=== PATIENT | female | born 1945 | race Caucasian/White ===

== ENCOUNTER 2019-08-20 22:36 | Inpatient (IN) | payer MEDICARE ==
[2019-08-20 23:07] LABS: BASOPHILS ABSOLUTE AUTO 0.06 K/mm3 (0.00-0.23); BASOPHILS PERCENT AUTO 1 % (0-2); EOSINOPHILS ABSOLUTE AUTO 0.35 K/mm3 (0.00-0.68); EOSINOPHILS PERCENT AUTO 4 % (0-6); Hematocrit 29.8 % (33.0-51.0); Hemoglobin 8.8 g/dL (11.5-16.0); IMMATURE GRAN ABSOLUTE AUTO 0.02 K/mm3 (0.00-0.10); IMMATURE GRAN PERCENT AUTO 0 % (0-1); LYMPHOCYTES ABSOLUTE AUTO 1.64 K/mm3 (0.84-5.20); LYMPHOCYTES PERCENT AUTO 18 % (21-46); MONOCYTES ABSOLUTE AUTO 0.81 K/mm3 (0.16-1.47); MONOCYTES PERCENT AUTO 9 % (4-13); Mean Corpuscular HGB 24.1 pg (26.0-34.0); Mean Corpuscular HGB Conc 29.5 g/dL (31.5-36.5); Mean Corpuscular Volume 82 fL (80-100); Mean Platelet Volume 9.7 fL (9.1-12.4); NEUTROPHILS PERCENT AUTO 69 % (41-73); Platelet Count 316 K/mm3 (150-400); RDW Coefficient Variation 16.6 % (11.7-14.2); RDW Standard Deviation 49.3 fL (35.1-46.3); Red Blood Cell Count 3.65 M/mm3 (3.80-5.20); White Blood Cell Count 9.38 K/mm3 (4.00-11.30)
[2019-08-20 23:30] LABS: Albumin, Blood 3.7 g/dL (3.4-5.0); Albumin/Globulin Ratio 1.1 (0.8-1.8); Bilirubin, Total 0.2 mg/dL (0.1-1.0); Bun/Creatinine Ratio 12.4 (12.0-20.0); Calcium, Blood 8.8 mg/dL (8.5-10.1); Creatinine, Blood 1.05 mg/dL (0.40-1.00); Globulin, Blood 3.3 g/dL (2.2-4.0); Troponin I 0.046 ng/mL (0.000-0.040)
[2019-08-20] MEDS ORDERED: ATOR40TA PO (23:40)
--- NOTE | 2019-08-21 05:30 | NUR ---
SUMMARY PT ARIVED TO FLOOR WITH CX PAIN. PT TX WITH NTG X 2 WITH DECREASED PAIN. PT BP IS CURRENTLY <150 SYSTOLIC. PT HAD NO OTHER ISSUES NOTED PT CURRENTLY SLEEPING AND BREATHING EASY. CALL LIGHT IN REACH. TM
[2019-08-21 07:44] LABS: Hematocrit 28.3 % (33.0-51.0); Hemoglobin 8.3 g/dL (11.5-16.0); Mean Corpuscular HGB 23.6 pg (26.0-34.0); Mean Corpuscular HGB Conc 29.3 g/dL (31.5-36.5); Mean Corpuscular Volume 80 fL (80-100); Mean Platelet Volume 9.9 fL (9.1-12.4); Platelet Count 291 K/mm3 (150-400); RDW Coefficient Variation 16.8 % (11.7-14.2); Red Blood Cell Count 3.52 M/mm3 (3.80-5.20); White Blood Cell Count 8.23 K/mm3 (4.00-11.30)
[2019-08-21 08:33] LABS: Alanine Aminotransfer (ALT/SGP 18 U/L (12-78); Albumin, Blood 3.4 g/dL (3.4-5.0); Albumin/Globulin Ratio 1.1 (0.8-1.8); Alk Phos 83 U/L (50-136); Anion Gap 6 mmol/L (6-16); Aspartate Aminotrans (AST/SGOT 25 U/L (12-37); Bilirubin, Total 0.3 mg/dL (0.1-1.0); Blood Urea Nitrogen 11 mg/dL (8-24); Bun/Creatinine Ratio 12.1 (12.0-20.0); CO2, Blood 25 mmol/L (21-32); Calcium, Blood 8.6 mg/dL (8.5-10.1); Chloride, Blood 110 mmol/L (98-108); Creatinine, Blood 0.91 mg/dL (0.40-1.00); Globulin, Blood 3.1 g/dL (2.2-4.0); Glomerular Filtration Rate >60 (60-); Glucose, Blood 96 mg/dL (70-99); Potassium, Blood 4.1 mmol/L (3.5-5.5); Sodium, Blood 141 mmol/L (136-145); Total Protein, Blood 6.5 g/dL (6.4-8.2)
[2019-08-21 08:35] LABS: Troponin I 0.294 ng/mL (0.000-0.040)
--- NOTE | 2019-08-21 08:47 | NUR ---
Echocardiogram completed.
[2019-08-21] MEDS ORDERED: Zantac150 MG PO (12:53)
[2019-08-21] MEDS ORDERED: MONT10T PO (13:05)
[2019-08-21] MEDS ORDERED: OMEP20ER PO (13:23)
[2019-08-21] MEDS ORDERED: Imitrex100 MG PO (13:27)
[2019-08-21] MEDS ORDERED: EUTHYROX88 MCG PO (13:27)
[2019-08-21] MEDS ORDERED: ATOR80 PO (13:28)
[2019-08-21] MEDS ORDERED: LISI20 PO (13:28)
[2019-08-21] MEDS ORDERED: CYAN500 PO (13:29)
[2019-08-21] MEDS ORDERED: B COMPLEX PO (13:33)
[2019-08-21] MEDS ORDERED: CALCIUM CIT 311 EACH PO (13:34)
[2019-08-21] MEDS ORDERED: COLCHICINE0.6 M1 PO (13:34)
--- NOTE | 2019-08-21 13:58 | NUR ---
SHE HAS BEEN NPO RIGHT AFTER BREAKFAST WHEN WAS HERE. MED REC DONE FROM HER [facility] FAX WE RECEIVED AND HER VERIFICATION. NO CP. NO SOB. NO DIZZINESS. HER FRIENDS ARE HERE NOW VISITING WITH HER.
--- NOTE | 2019-08-21 15:29 | NUR ---
SHE WENT TO [facility] BY W/C AT 1518. HER 2 FRIENDS WERE WITH HER. SHE CONTINUED TO HAVE NO CP OR SOB. HER FEW BELONGINGS WENT WITH HER AND HER FRIENDS. WILL CALL REPORT WHEN I GET A NEW ROOM ASSIGNMENT FOR HER.
[2019-08-21 16:05] LABS: Troponin I 0.5 ng/mL (0.000-0.040)
--- NOTE | 2019-08-21 18:42 | NUR ---
PT ARIRIVED FROM FLOOR STEWARD/STEWARDESS VIA RCA STENT PLACEMENT. PT ALERT, DENIES CP OR SOB. TR BAND INPLACE WITH 12ML AIR IN BAND, NO ACTIVE BLEEDING TO PUNCTURE SITE. SKIN PWD ANDINTACT. GOOD ROM. PULSES INTACT
[2019-08-22 04:33] LABS: BASOPHILS ABSOLUTE AUTO 0.07 K/mm3 (0.00-0.23); BASOPHILS PERCENT AUTO 1 % (0-2); EOSINOPHILS ABSOLUTE AUTO 0.27 K/mm3 (0.00-0.68); EOSINOPHILS PERCENT AUTO 4 % (0-6); Hematocrit 29.3 % (33.0-51.0); Hemoglobin 8.7 g/dL (11.5-16.0); IMMATURE GRAN ABSOLUTE AUTO 0.02 K/mm3 (0.00-0.10); IMMATURE GRAN PERCENT AUTO 0 % (0-1); LYMPHOCYTES ABSOLUTE AUTO 1.85 K/mm3 (0.84-5.20); LYMPHOCYTES PERCENT AUTO 25 % (21-46); MONOCYTES ABSOLUTE AUTO 0.82 K/mm3 (0.16-1.47); MONOCYTES PERCENT AUTO 11 % (4-13); Mean Corpuscular HGB 23.7 pg (26.0-34.0); Mean Corpuscular HGB Conc 29.7 g/dL (31.5-36.5); Mean Corpuscular Volume 80 fL (80-100); Mean Platelet Volume 10.2 fL (9.1-12.4); NEUTROPHILS ABSOLUTE AUTO 4.47 K/mm3 (1.96-9.15); NEUTROPHILS PERCENT AUTO 60 % (41-73); Platelet Count 293 K/mm3 (150-400); RDW Coefficient Variation 16.7 % (11.7-14.2); RDW Standard Deviation 48.2 fL (35.1-46.3); Red Blood Cell Count 3.67 M/mm3 (3.80-5.20)
[2019-08-22 04:51] LABS: Anion Gap 5 mmol/L (6-16); Blood Urea Nitrogen 10 mg/dL (8-24); Bun/Creatinine Ratio 11.1 (12.0-20.0); CO2, Blood 27 mmol/L (21-32); Calcium, Blood 8.8 mg/dL (8.5-10.1); Chloride, Blood 108 mmol/L (98-108); Glomerular Filtration Rate >60 (60-); Glucose, Blood 90 mg/dL (70-99); Sodium, Blood 140 mmol/L (136-145)
--- NOTE | 2019-08-22 08:09 | NUR ---
SUMMARY PT HAS DONE WELL THROUGH THE NIGHT. VSS, NO ACUTE CHANGES NOTED, RIGHT RADIAL SITE C/D/I. TEGADERM IN PLACE, NO HEMATOMA OR BRUISING NOTED. PT IS INDEPENDENT IN THE ROOM, CALL LIGHT IN REACH. REPORT GIVEN TO DAY RN. RADIAL SITE CHECKED AT THE BEDSIDE.
--- NOTE | 2019-08-22 10:41 | NUR ---
Pt. is in bed resting and is doing well she may go home today encouragede and offered prayers .
[2019-08-22] MEDS ORDERED: Vitamin B Comple1 EA PO (12:19)
[2019-08-22] MEDS ORDERED: CLOP75 PO (12:20)
[2019-08-22] MEDS ORDERED: ASPI81CH PO (12:20)
[2019-08-22] MEDS ORDERED: METO25 PO (12:21)
--- NOTE | 2019-08-22 13:12 | NUR ---
DISCHARGE SUMMARY PATIENT LEFT UNIT VIA WHEEL CHAIR FOR HOME IN [place] WITH FRIEND. PATIENT EDUCATED ON D/C INSTRUCTIONS, PATIENT ALREADY MADE FOLLOW UP APPTS AND HAS A PLAN TO GET HER NEW MEDICATIONS TODAY. PATIENT LEFT IN NO ACUTE DISTRESS. VSS. ON ROOM AIR. DENIES ANY PAIN. EDUCATED ON POST ANGIO INSTRUCTIONS VIA VERBAL AND WRITTEN MATERIAL.
== END 2019-08-22 12:53 | disposition home or self-care (01) | DRG 247 ==
LOC: ER 22:36 → MEDS 22:37 → PCU 08-21 15:15
PROVIDERS: Emergency Medicine; Hospitalist; ADMIT Internal Medicine
PROC: B211YZZ Fluoroscopy of Multiple Coronary Arteries using Other Contrast (ICD-10-PCS; principal; 2019-08-21)
PROC: 027034Z Dilation of Coronary Artery, One Artery with Drug-eluting Intraluminal Device, Percutaneous Approach (ICD-10-PCS; 2019-08-21)
DX: I16.1 Hypertensive emergency (principal); I25.10 Atherosclerotic heart disease of native coronary artery without angina pectoris; I10 Essential (primary) hypertension; E78.5 Hyperlipidemia, unspecified; E66.01 Morbid (severe) obesity due to excess calories; Z98.84 Bariatric surgery status; D64.9 Anemia, unspecified; K27.9 Peptic ulcer, site unspecified, unspecified as acute or chronic, without hemorrhage or perforation; M19.90 Unspecified osteoarthritis, unspecified site; Z68.33 Body mass index [BMI] 33.0-33.9, adult
CPT/HCPCS: 36415; 71046; 71275; 80048; 80053; 82550; 83690; 83880; 84484; 85025; 85027; 85347; 90686; 92978; 93005; 93010; 93306; 93454; 96372; 96376; 99152; 99153; 99285-25; A9270-GY; C1725; C1753; C1769; C1874; C1887; C1894; C9600; G0378; J1644; J1650; J2250; J3010; J7030; Q9967